=== PATIENT | male | born 1940 | race American Indian/Alaskan Native ===

== ENCOUNTER 2016-06-18 11:09 | Outpatient (CLI) | payer MEDICARE, OTHER ==
--- NOTE | 2016-06-18 14:49 | XRay Report ---
KUB. History: Kidney stones. Findings: A large volume of stool is seen throughout the colon. A few vascular ossifications are noted in the pelvis. Calcifications within the kidneys may be of secured by bowel gas and stool.
== END 2016-06-18 11:10 | disposition home or self-care (01) ==
LOC: XRAY 11:09
PROVIDERS: ATTEND Urology
DX: N20.0 Calculus of kidney (principal)
CPT/HCPCS: 74000

== ENCOUNTER 2016-12-15 09:39 | Outpatient (CLI) | payer MEDICARE, OTHER ==
--- NOTE | 2016-12-15 10:35 | Ultrasound Report ---
ULTRASOUND RENAL BILATERAL INDICATION: Kidney stones. COMPARISON: 02/21/2015 CT. FINDINGS: Renal sonography demonstrates normal cortical echogenicity. Preserved contours. No hydronephrosis. RIGHT KIDNEY is 11.5 x 5.3 x 6 cm with cortical thickness of 1.2 cm. A 5 mm right lower renal corticomedullary junction echogenicity/possible stone, though without significant shadowing. LEFT KIDNEY is 11.4 x 4.8 x 4.6 cm with cortical thickness of 1.9 cm. URINARY BLADDER suboptimally distended and assessed. CONCLUSION: No acute renal sonographic abnormality with a small nonobstructing right lower renal calculus again suspected, as above. Thank you for the opportunity to participate in this patient's care.
== END 2016-12-15 09:40 | disposition home or self-care (01) ==
LOC: US 09:39
PROVIDERS: ATTEND Urology
DX: N20.0 Calculus of kidney (principal); N32.89 Other specified disorders of bladder
CPT/HCPCS: 76770

== ENCOUNTER 2018-09-20 09:04 | Outpatient (CLI) | payer MEDICARE, OTHER ==
[2018-09-20 10:07] LABS: Blood Urea Nitrogen 18 mg/dL (9-20)
--- NOTE | 2018-09-20 12:06 | Cat Scan Report ---
CT ABDOMEN AND PELVIS WITH AND WITHOUT CONTRAST INDICATION / CLINICAL INFORMATION: BENIGN ESSENTIAL MICROSCOPIC HEMATURIA (R31.1) CT UROGRAM W/WOCON. TECHNIQUE: Axial CT images were obtained through the abdomen and pelvis after 100 cc of Omnipaque 300 IV contras t. Sagittal and coronal reformatted images. CT urogram images. All CT scans at this location are perf ormed using CT dose reduction for ALARA by means of automated exposure control. COMPARISON: 02/21/2015 FINDINGS: LOWER CHEST: The visualized lung bases are clear. Mild cardiomegaly. LIVER: The liver is normal size and density. There are 3 right hepatic lobe cysts measuring up to 1.5 cm. GALLBLADDER: No significant abnormality. BILE DUCTS: No significant abnormality. PANCREAS: No significant abnormality. SPLEEN: No significant abnormality. ADRENALS: No significant abnormality. RIGHT KIDNEY and URETER: Normal size and position. A 1 cm cyst is noted near the inferior pole. No ne phrolithiasis. 5 mm stone in the inferior right kidney is no longer seen. The right ureter is normal course and caliber. LEFT KIDNEY and URETER: Normal size and position. 1 cm cyst is noted near the superior pole. A 5 mm c alcification is noted near mid pole which is unchanged. The left ureter is normal course and caliber. STOMACH and SMALL BOWEL: No significant abnormality. COLON: There is a large amount of stool throughout the length of the colon. No obvious colonic lesion or inflammation. APPENDIX: Not confidently identified, correlate with surgical history. PERITONEUM: No free fluid. No free air. No fluid collection. LYMPH NODES: No significant adenopathy. AORTA and ARTERIES: Moderate calcified plaques are noted in the abdominal aorta and iliac arteries. N o aneurysm or dissection. No significant stenosis. IVC and VEINS: No significant abnormality. URINARY BLADDER: The prostate gland is markedly enlarged measuring 6.1 cm in diameter. A prominent in dentation is noted on the bladder base. The bladder is within normal limits otherwise. ADDITIONAL FINDINGS: None. SKELETAL SYSTEM: Intact. Moderate thoracolumbar spondylosis. No fracture or suspicious bony lesion IMPRESSION: Mild cardiomegaly. Bilateral simple renal cysts. 5 mm calcification in the mid left kidney consistent with a nonobstructing stone which is unchanged. A 5 mm calcification at the inferior pole of the right kidney is no longer seen. No ureteral stones o r hydronephrosis. No significant renal scarring is identified in this patient with history of multipl e renal biopsies. Constipation. Enlargement of the prostate gland. Aortic calcifications Signer Name: Luis Ambriz Jr, MD Signed: 09/20/2018 12:02 PM Workstation Name: [id number]
== END 2018-09-20 09:05 | disposition home or self-care (01) ==
LOC: CT 09:04
PROVIDERS: ATTEND Urology
DX: N28.1 Cyst of kidney, acquired (principal); I70.0 Atherosclerosis of aorta; I11.9 Hypertensive heart disease without heart failure; R59.9 Enlarged lymph nodes, unspecified; M47.815 Spondylosis without myelopathy or radiculopathy, thoracolumbar region; E78.00 Pure hypercholesterolemia, unspecified; K21.9 Gastro-esophageal reflux disease without esophagitis
CPT/HCPCS: 36415; 74178; 82565; 84520; Q9967